=== PATIENT | male | born 2000 ===

== ENCOUNTER 2019-12-03 19:46 | Emergency (ER) | payer SELFPAY | END 2019-12-03 20:32 | disposition home or self-care (01) | LOC: ERS 19:46 | DX: J02.8 Acute pharyngitis due to other specified organisms (principal); J45.909 Unspecified asthma, uncomplicated; F41.9 Anxiety disorder, unspecified; F32.9 Major depressive disorder, single episode, unspecified; D57.3 Sickle-cell trait | CPT/HCPCS: 99282 ==